=== PATIENT | male | born 1965 | race Caucasian/White ===

== ENCOUNTER 2018-02-02 18:47 | Emergency (ER) | payer BC ==
[~2018-02-02] VITALS: Ht 185.4 cm; Wt 104.3 kg
[2018-02-02] MEDS ORDERED: UNISOM25 MG (19:01)
[2018-02-02] MEDS ORDERED: AUGMENTIN 875-1 EACH PO (20:20)
[2018-02-02 20:33] VITALS: BP 159/105
== END 2018-02-02 20:34 | disposition home or self-care (01) ==
LOC: M.ERS 18:47
DX: S51.811A Laceration without foreign body of right forearm, initial encounter (principal); W54.0XXA Bitten by dog, initial encounter; Y93.89 Activity, other specified; Y92.89 Other specified places as the place of occurrence of the external cause; Y99.8 Other external cause status